=== PATIENT | male | born 1955 | race Caucasian/White ===

== ENCOUNTER 2020-06-27 14:48 | Outpatient (REF) | payer MEDICARE, MEDICAID, SELFPAY | END 2020-06-27 14:49 | disposition home or self-care (01) | LOC: HO.LAB 14:48 | PROVIDERS: Visit Provider Internal Medicine | DX: Z20.822 Contact with and (suspected) exposure to COVID-19 (principal) | CPT/HCPCS: 36415; C9803; U0003 ==

== ENCOUNTER 2021-04-15 10:15 | Day surgery (SDC) | payer OTHER, SELFPAY ==
[2021-04-09 12:39] VITALS: BMI 25.7
--- NOTE | 2021-04-11 14:16 | MHC.SHP ---
Pre-Procedural Eval Section A Date of Service: 04/11/21 The patient is an INPATIENT: No Changes since office visit: No Cold of Flu in the past 2 weeks, No New Medical Problems, No Changes in Medication and No Patient answered all questions The History & Physical has been completed within 30 days and I have reviewed it.: Yes Section B Chief Complaint: cataract right eye Allergies: Allergies Allergy/AdvReac Type Severity Reaction Status Date / Time No Known Allergies Allergy Unverified 04/09/21 12:44 [No Known Allergies*] Plan Diagnosis/Plan: Unchanged I have reviewed the history and physical and performed a pertinent physical examination on my patient. No changes have occurred unless specified.
--- NOTE | 2021-04-12 13:58 | HO.ANESPROP2 ---
Documented by User: Bety Carvajal NP 04/12/21 14:01 HPI - Anesthesia Eval Consult details Narrative: 65yo M for Right Cataract Multifocal with IOL Insertion PCP cleared No previous cataract on file PMFSH Past Medical History Medical History COVID-19 vaccine series completed Depression Elevated cholesterol GERD (gastroesophageal reflux disease) History of alcohol abuse HTN (hypertension) Intellectual disability Neurofibromatosis On beta higinio at home Schizophrenia Seizures Tachycardia Surgical History Surgical History History of hernia repair History of surgery Social History Social History Household Members Other:: 2 other male residents Are you a primary point of care specialist to a significant other at home: No Do you presently have visiting nurse or other home services: Yes ([facility]; [id number] Patient Tobacco Use Status: Former Tobacco user Quit Date: years ago Tobacco use type: Cigarette Use of substances other than those prescribed or required for medical reasons: No Have you been hit, kicked, punched, or otherwise hurt by someone within the past year? If so, by whom?: No Are you DNR?: No Advance Directives: No Advance Directives Information Provided: No Advance Directives on File: No Recently lost weight without trying: No Eating poorly because of decreased appetite: No Nutrition Risks: No Nutritional Risk Meds Allergies Allergy/AdvReac Type Severity Reaction Status Date / Time No Known Allergies Allergy Verified 04/15/21 12:50 [No Known Allergies*] Home Medications Medication Instructions Recorded Confirmed Last Taken Type acetaminophen 650 mg tablet 650 mg PO Q8H PRN 04/12/21 04/12/21 Unknown History amlodipine 2.5 mg tablet 2.5 mg PO DAILY 04/12/21 04/12/21 Unknown History atorvastatin 10 mg tablet (Lipitor) 10 mg PO DAILY 04/12/21 04/12/21 Unknown History folic acid 1 mg tablet 1 mg PO DAILY 04/12/21 04/12/21 Unknown History levetiracetam 1,000 mg tablet 1,000 mg PO BID 04/12/21 04/12/21 Unknown History levetiracetam 250 mg tablet 250 mg PO BID 04/12/21 04/12/21 Unknown History loratadine 10 mg tablet 10 mg PO DAILY 04/12/21 04/12/21 Unknown History metoprolol succinate 25 mg 1 tab PO DAILY 04/12/21 04/12/21 Unknown History tablet,extended release 24 hr multivitamin with folic acid 400 1 tab PO DAILY 04/12/21 04/12/21 Unknown History mcg tablet (Tab-A-Zulema) pantoprazole 20 mg tablet,delayed 20 mg PO DAILY 04/12/21 04/12/21 Unknown History release thiamine HCl (vitamin B1) 100 mg 1 tab PO DAILY 04/12/21 04/12/21 Unknown History tablet venlafaxine 150 mg tablet,extended 150 mg PO DAILY 04/12/21 04/12/21 Unknown History release 24 hr Exam Exam Date and Time: April 12, 2021 1358 Height,Weight and Vital Signs: Height 5 ft 3 in Weight 65.771 kg Assessment and Plan Assessment Anesthesia Assessment: Chart Reviewed Documented by User: Samson Jimenez MD 04/15/21 13:03 [facility] Past Medical History Medical History COVID-19 vaccine series completed Depression Elevated cholesterol GERD (gastroesophageal reflux disease) History of alcohol abuse HTN (hypertension) Intellectual disability Neurofibromatosis On beta higinio at home Schizophrenia Seizures Tachycardia Surgical History Surgical History History of hernia repair History of surgery Social History Social History Household Members Other:: 2 other male residents Are you a primary point of care specialist to a significant other at home: No Do you presently have visiting nurse or other home services: Yes ([facility]; Under Care [facility]- [place] [id number]) Patient Tobacco Use Status: Former Tobacco user Quit Date: years ago Tobacco use type: Cigarette Use of substances other than those prescribed or required for medical reasons: No Have you been hit, kicked, punched, or otherwise hurt by someone within the past year? If so, by whom?: No Are you DNR?: No Advance Directives: No Advance Directives Information Provided: No Advance Directives on File: No Recently lost weight without trying: No Eating poorly because of decreased appetite: No Nutrition Risks: No Nutritional Risk Meds Allergies Allergy/AdvReac Type Severity Reaction Status Date / Time No Known Allergies Allergy Verified 04/15/21 12:50 [No Known Allergies*] Home Medications Medication Instructions Recorded Confirmed Last Taken Type acetaminophen 650 mg tablet 650 mg PO Q8H PRN 04/12/21 04/12/21 Unknown History amlodipine 2.5 mg tablet 2.5 mg PO DAILY 04/12/21 04/12/21 Unknown History atorvastatin 10 mg tablet (Lipitor) 10 mg PO DAILY 04/12/21 04/12/21 Unknown History folic acid 1 mg tablet 1 mg PO DAILY 04/12/21 04/12/21 Unknown History levetiracetam 1,000 mg tablet 1,000 mg PO BID 04/12/21 04/12/21 Unknown History levetiracetam 250 mg tablet 250 mg PO BID 04/12/21 04/12/21 Unknown History loratadine 10 mg tablet 10 mg PO DAILY 04/12/21 04/12/21 Unknown History metoprolol succinate 25 mg 1 tab PO DAILY 04/12/21 04/12/21 Unknown History tablet,extended release 24 hr multivitamin with folic acid 400 1 tab PO DAILY 04/12/21 04/12/21 Unknown History mcg tablet (Tab-A-Zulema) pantoprazole 20 mg tablet,delayed 20 mg PO DAILY 04/12/21 04/12/21 Unknown History release thiamine HCl (vitamin B1) 100 mg 1 tab PO DAILY 04/12/21 04/12/21 Unknown History tablet venlafaxine 150 mg tablet,extended 150 mg PO DAILY 04/12/21 04/12/21 Unknown History release 24 hr Exam Airway Mallampati Class: II TM Dist: >3cm Neck ROM: Full Loose/Missing/Broken Teeth: Yes, Upper and Lower
[2021-04-15 12:51] VITALS: BP 124/79; PULSE 95; RESP 16; TEMP 36.6; O2SAT 96
[2021-04-15] MEDS: Tetracaine HCl/PF 0.5% Oph Sol 4 ML DROPS 1 DROP EYE-RIGHT (13:00)
[2021-04-15] MEDS: Lactated Ringers 500 ML 50 ML IV (13:02)
[2021-04-15] MEDS: Tropicamide 1 % Ophth Sol 3 ML BTL 1 DROP EYE-RIGHT ×3 (13:02→13:14)
[2021-04-15] MEDS: Phenylephrine HCL 2.5% Oph SoL 2 ML BOTTLE 1 DROP EYE-RIGHT ×3 (13:06→13:18)
--- NOTE | 2021-04-15 14:04 | HO.PNOPHT ---
Ophthalmology Procedure Procedure Date of Service: 04/15/21 Ophthalmology Viscoelastic: Healon Duet Dual Pack Pro Ophthalmology Lenses: TECNIS [id number] (21.5) Procedure Notes: PREOPERATIVE DIAGNOSIS: Decreased visual acuity right eye secondary to cataract POSTOPERATIVE DIAGNOSIS: Same PROCEDURE: Right cataract extraction with intraocular lens insertion SURGEON: Felipe Carney M.D. ANESTHESIA: Topical/MAC ESTIMATED BLOOD LOSS: None COMPLICATIONS: None After obtaining informed consent, the patient was brought to the operating room suite and placed in the supine position. After adequate sedation per anesthesia, topical drops of Tetracaine were given to the right eye. The eye was then prepped and draped in the usual sterile fashion. The operating room microscope was then positioned over the operative eye and a lid speculum placed. A paracentesis was created. Viscoelastic was then instilled into the anterior chamber. A three plane incision was then created temporally, utilizing a 2.85 mm keratome. Capsulotomy forceps were then utilized to create a circular tear capsulotomy. Hydrodissection and hydrodelineation were carried out until adequate mobilization of the nucleus occurred. Phacoemulsification was then utilized to remove the dense central nucleus followed by removal of the cortical material utilizing the automated aspiration irrigation unit. Viscoelastic was instilled into the posterior capsular bag followed by placement of a posterior chamber intraocular lens without difficulty. The residual Viscoelastic was then removed utilizing the automated IA machine. The wound was checked and found to be watertight. The patient tolerated the procedure well and the lid speculum was removed. Intracameral injection of Vigamox 0.1 mL followed by a subtenon injection of Kenalog-40 0.2 mL were administered. The patient will be seen in the a.m.
[2021-04-15 14:46] VITALS: BP 125/77; PULSE 92; RESP 18; TEMP 36.3; O2SAT 95
== END 2021-04-15 15:07 | disposition home or self-care (01) ==
PROVIDERS: Visit Provider Ophthalmology
PROC: (CPT 66985; principal; 2021-04-15 13:40)
DX: H25.11 Age-related nuclear cataract, right eye (principal); H54.7 Unspecified visual loss; I10 Essential (primary) hypertension; R56.9 Unspecified convulsions; F20.9 Schizophrenia, unspecified; F70 Mild intellectual disabilities; Q85.01 Neurofibromatosis, type 1; Z79.899 Other long term (current) drug therapy; Z87.891 Personal history of nicotine dependence
CPT/HCPCS: 66984; J2250; J3010; J3300; V2632

== ENCOUNTER 2021-04-29 12:38 | Day surgery (SDC) | payer OTHER, SELFPAY ==
[2021-04-09 12:45] VITALS: BMI 25.7
--- NOTE | 2021-04-26 08:29 | MHC.SHP ---
Pre-Procedural Eval Section A Date of Service: 04/26/21 The patient is an INPATIENT: No Changes since office visit: Yes Cold of Flu in the past 2 weeks, Yes New Medical Problems, Yes Changes in Medication and Yes Patient answered all questions Section B Chief Complaint: cataract left eye Allergies: Allergies Allergy/AdvReac Type Severity Reaction Status Date / Time No Known Allergies Allergy Verified 04/15/21 12:50 [No Known Allergies*] Plan I have reviewed the history and physical and performed a pertinent physical examination on my patient. No changes have occurred unless specified.
--- NOTE | 2021-04-26 08:30 | MHC.SHP ---
Pre-Procedural Eval Section A Date of Service: 04/26/21 The patient is an INPATIENT: No Changes since office visit: No Cold of Flu in the past 2 weeks, No New Medical Problems, No Changes in Medication and No Patient answered all questions The History & Physical has been completed within 30 days and I have reviewed it.: Yes Section B Chief Complaint: cataract left eye Allergies: Allergies Allergy/AdvReac Type Severity Reaction Status Date / Time No Known Allergies Allergy Verified 04/15/21 12:50 [No Known Allergies*] Plan Diagnosis/Plan: Unchanged I have reviewed the history and physical and performed a pertinent physical examination on my patient. No changes have occurred unless specified.
[2021-04-29 13:11] VITALS: BP 139/40; PULSE 86; RESP 16; TEMP 37.1; O2SAT 98
[2021-04-29] MEDS: Lactated Ringers 500 ML 50 ML IVCONT (13:13)
[2021-04-29] MEDS: Tetracaine HCl/PF 0.5% Oph Sol 4 ML DROPS 1 DROP EYE-LEFT (13:13)
[2021-04-29] MEDS: Tropicamide 1 % Ophth Sol 3 ML BTL 1 DROP EYE-LEFT ×3 (13:15→13:26)
[2021-04-29] MEDS: Phenylephrine HCL 2.5% Oph SoL 2 ML BOTTLE 1 DROP EYE-LEFT ×3 (13:18→13:28)
--- NOTE | 2021-04-29 13:25 | P.CONAN_ITS ---
HPI - Anesthesia Eval Consult details Narrative: left eye cataract [facility] Past Medical History Medical History COVID-19 vaccine series completed Depression Elevated cholesterol GERD (gastroesophageal reflux disease) History of alcohol abuse HTN (hypertension) Intellectual disability Neurofibromatosis On beta higinio at home Schizophrenia Seizures Tachycardia Family History Family history of problems with anesthesia: No Surgical History Surgical History (Updated 04/23/21 @ 09:57 by Teri Hutson RN) History of cataract extraction History of hernia repair History of surgery History of Problems with Anesthesia: No Social History Social History Household Members Other:: 2 other male residents Are you a primary landcare officer to a significant other at home: No Do you presently have visiting nurse or other home services: Yes ([facility]; [facility] [id number] Patient Tobacco Use Status: Former Tobacco user Quit Date: years ago Tobacco use type: Cigarette Use of substances other than those prescribed or required for medical reasons: No Have you been hit, kicked, punched, or otherwise hurt by someone within the past year? If so, by whom?: No Are you DNR?: No Advance Directives: No Advance Directives Information Provided: No Advance Directives on File: No Recently lost weight without trying: No Eating poorly because of decreased appetite: No Nutrition Risks: No Nutritional Risk Meds Allergies Allergy/AdvReac Type Severity Reaction Status Date / Time No Known Allergies Allergy Verified 04/15/21 12:50 [No Known Allergies*] Active Medications: Current Medications Cyclopentolate HCl (Cyclopentolate 1 % Ophth Yasmine 2 Ml Drpbtl) 1 drop EYE-LEFT Q5M RAD Stop: 04/29/21 13:26 Lactated Ringer's (Lr) 500 mls @ 50 mls/hr IVCONT .Q10H RAD Last Admin: 04/29/21 13:13 Dose: 50 mls/hr Documented by: Ketorolac Tromethamine (Ketorolac Tromethamine 0.5% Op 3 Ml Drops) 1 drop EYE- LEFT Q5M RAD Stop: 04/29/21 13:26 Last Admin: 04/29/21 13:23 Dose: 1 drop Documented by: Phenylephrine HCl (Phenylephrine Hcl 2.5% Oph Yasmine 2 Ml Bottle) 1 drop EYE-LEFT Q5M RAD Stop: 04/29/21 13:26 Last Admin: 04/29/21 13:18 Dose: 1 drop Documented by: Povidone Iodine (Povidone Iodine 5 % Ophth Soln 30 Ml Bottle) 1 appl EYE-LEFT PREOP PRN PRN Reason: Pre-Op Surgical Implant Prophy Tropicamide (Tropicamide 1 % Ophth Yasmine 3 Ml Btl) 1 drop EYE-LEFT Q5M RAD Stop: 04/29/21 13:26 Last Admin: 04/29/21 13:20 Dose: 1 drop Documented by: Home Medications Medication Instructions Recorded Confirmed Last Taken Type acetaminophen 650 mg tablet 650 mg PO Q8H PRN 04/12/21 04/12/21 Unknown History amlodipine 2.5 mg tablet 2.5 mg PO DAILY 04/12/21 04/12/21 Unknown History atorvastatin 10 mg tablet (Lipitor) 10 mg PO DAILY 04/12/21 04/12/21 Unknown History folic acid 1 mg tablet 1 mg PO DAILY 04/12/21 04/12/21 Unknown History levetiracetam 1,000 mg tablet 1,000 mg PO BID 04/12/21 04/12/21 Unknown History levetiracetam 250 mg tablet 250 mg PO BID 04/12/21 04/12/21 Unknown History loratadine 10 mg tablet 10 mg PO DAILY 04/12/21 04/12/21 Unknown History metoprolol succinate 25 mg 1 tab PO DAILY 04/12/21 04/12/21 Unknown History tablet,extended release 24 hr multivitamin with folic acid 400 1 tab PO DAILY 04/12/21 04/12/21 Unknown History mcg tablet (Tab-A-Zulema) pantoprazole 20 mg tablet,delayed 20 mg PO DAILY 04/12/21 04/12/21 Unknown History release thiamine HCl (vitamin B1) 100 mg 1 tab PO DAILY 04/12/21 04/12/21 Unknown History tablet venlafaxine 150 mg tablet,extended 150 mg PO DAILY 04/12/21 04/12/21 Unknown History release 24 hr Exam Exam Date and Time: April 29, 2021 1325 Height,Weight and Vital Signs: Height 5 ft 3 in Weight 65.771 kg Last Vital Signs Temp 98.8 F 04/29/21 13:11 Pulse 86 04/29/21 13:11 Resp 16 04/29/21 13:11 BP 139/40 L 04/29/21 13:11 Pulse Ox 98 04/29/21 13:11 Airway Mallampati Class: II TM Dist: >3cm Neck ROM: Full Loose/Missing/Broken Teeth: Yes Heart: [id number] Lungs: cta b/l Assessment and Plan Assessment Anesthesia Assessment: Anesthesia Plan Discussed and Chart Reviewed Final Anesthetic Review Family History of Problems with Anesthesia: No History of Problems with Anesthesia: No NPO: Yes ASA Class: III Final Preanesthetic Review: No Changes in Pt Med Stat, Consent Obtained/Reviewed and Anes Risks/Benef Reviewed Patient Risk: Intermediate Procedure Risk: Low Assessment/Block/Sedation in SS: Assess/Block/Sedation-SS Anesthetic Plan Anesthetic Plan: MAC: and Agree w/ Assess. and Plan Disposition: Standard PACU
--- NOTE | 2021-04-29 13:43 | HO.PNOPHT ---
Ophthalmology Procedure Procedure Date of Service: 04/29/21 Ophthalmology Viscoelastic: Healon Duet Dual Pack Pro Ophthalmology Lenses: TECNIS [id number] (20.5) Procedure Notes: PREOPERATIVE DIAGNOSIS: Decreased visual acuity left eye secondary to cataract POSTOPERATIVE DIAGNOSIS: Same PROCEDURE: Left cataract extraction with intraocular lens insertion SURGEON: Felipe Carney M.D. ANESTHESIA: Topical/MAC ESTIMATED BLOOD LOSS: None COMPLICATIONS: None After obtaining informed consent, the patient was brought to the operation room suite and placed in the supine position. After adequate sedation per anesthesia, topical drops of Tetracaine were given to the left eye. The eye was then prepped and draped in the usual sterile fashion. The operating room microscope was then positioned over the operative eye and a lid speculum placed. A paracentesis was created. Viscoelastic was then instilled into the anterior chamber. A three plane incision was then created temporally, utilizing a 2.85 mm keratome. Capsulotomy forceps were then utilized to create a circular tear capsulotomy. Hydrodissection and hydrodelineation were carried out until adequate mobilization of the nucleus occurred. Phacoemulsification was then utilized to remove the dense central nucleus followed by removal of the cortical material utilizing the automated aspiration irrigation unit. Viscoat elastic was instilled into the posterior capsular bag followed by placement of a posterior chamber intraocular lens without difficulty. The residual Viscoat elastic was then removed utilizing the automated IA machine. The wound was check and found to be watertight. The patient tolerated the procedure well and the lid speculum was removed. Intracameral injection of Vigamox 0.1 mL followed by a subtenon injection of Kenalog-40 0.2 mL were administered. The patient will be seen in the a.m.
[2021-04-29 14:09] VITALS: BP 146/89; PULSE 94; RESP 17; TEMP 36.4; O2SAT 99
== END 2021-04-29 14:17 | disposition home or self-care (01) ==
PROVIDERS: Visit Provider Ophthalmology
PROC: (CPT 66985; principal; 2021-04-29 13:20)
DX: H25.12 Age-related nuclear cataract, left eye (principal); H54.7 Unspecified visual loss; I10 Essential (primary) hypertension; E78.5 Hyperlipidemia, unspecified; Q85.01 Neurofibromatosis, type 1; F32.9 Major depressive disorder, single episode, unspecified; R56.9 Unspecified convulsions; Z87.891 Personal history of nicotine dependence; Z79.899 Other long term (current) drug therapy
CPT/HCPCS: 66984; J2250; J3010; J3300; V2632